=== PATIENT | male | born 1985 | race Caucasian/White ===

== ENCOUNTER 2018-12-09 16:04 | Emergency (ER) | payer OTHER ==
[~2018-12-09] VITALS: Ht 193 cm; Wt 132.9 kg
[~2018-12-09 16:04] MED LIST: BACTRIM DS TAB1 EACH PO; NOHOMEMEDICATIONS; NORCO 5-325 TA1 EACH PO; PREDNISONE 20 M20 M1 PO; VENTOLIN HFA 1818 GM INH; ZPAK PO
[2018-12-09] MEDS ORDERED: BLOOD PRESSURE MED (16:15)
[2018-12-09 17:26] LABS: ABSOLUTE BASOPHILS 0.1 thou/uL (0.0-0.2); ABSOLUTE EOSINOPHILS 0.1 thou/uL (0.0-0.7); ABSOLUTE MONOCYTES 0.6 thou/uL (0.0-1.2); ABSOLUTE NEUTROPHILS 6.8 thou/uL (1.6-8.1); BASOPHILS 0.7 %; EOSINOPHILS 0.7 %; HEMATOCRIT 42.5 % (42.0-52.0); MCH 34.8 pg (26.0-34.0); MCHC 35.4 g/dL (28.0-37.0); MCV 98.4 fL (80.0-100.0); MONOCYTES 6.4 %; MPV 7.2 fl. (7.2-11.1); NUCLEATED RBCS 0 /100WBC; PLATELET COUNT* 221 thou/uL (150-400); POLYS 71.2 %; RBC 4.32 mil/uL (4.50-6.00); WBC 9.5 thou/uL (4.0-11.0)
[2018-12-09 17:36] LABS: CALCIUM 9.2 mg/dL (8.5-10.1); POTASSIUM 3.6 mmol/L (3.5-5.1)
[2018-12-09 17:41] LABS: ALBUMIN 3.7 g/dL (3.4-5.0); TOTAL BILIRUBIN 0.7 mg/dL (<0.1-1.0); TOTAL PROTEIN 7.3 g/dL (6.4-8.2)
[2018-12-09 20:21] LABS: URINE BILIRUBIN NEGATIVE (Negative); URINE BLOOD NEGATIVE (Negative); URINE CLARITY CLEAR; URINE COLOR YELLOW; URINE GLUCOSE-RANDOM NEGATIVE (Negative); URINE KETONES NEGATIVE (Negative); URINE LEUKOCYTES-REFLEX NEGATIVE (Negative); URINE NITRITE-REFLEX NEGATIVE (Negative); URINE PROTEIN TRACE (Negative); URINE SPECIFIC GRAVITY >= 1.030 (1.005-1.030); URINE UROBILINOGEN 0.2 E.U./dl (0.2-1.0)
[2018-12-09] MEDS ORDERED: ONDANSETRON HCL4 M2 PO (20:26)
[2018-12-09] MEDS ORDERED: VENTOLIN HFA 1818 GM INH (20:34)
[2018-12-09 20:41] VITALS: BP 151/91
== END 2018-12-09 20:42 | disposition home or self-care (01) ==
LOC: M.ERS 16:04
PROVIDERS: Nurse Practitioner Family
DX: E86.0 Dehydration (principal); I10 Essential (primary) hypertension; J45.909 Unspecified asthma, uncomplicated; F17.210 Nicotine dependence, cigarettes, uncomplicated

== ENCOUNTER 2018-12-30 14:41 | Emergency (ER) | payer OTHER ==
[~2018-12-30] VITALS: Ht 193 cm; Wt 132.9 kg
[~2018-12-30 14:41] MED LIST changes: +BLOOD PRESSURE MED; +ONDANSETRON HCL4 M2 PO
[2018-12-30] MEDS ORDERED: NAPROSYN500 MG PO (16:02)
[2018-12-30 16:15] VITALS: BP 150/91
== END 2018-12-30 16:16 | disposition home or self-care (01) ==
LOC: M.ERS 14:41
DX: S60.221A Contusion of right hand, initial encounter (principal); J45.909 Unspecified asthma, uncomplicated; I10 Essential (primary) hypertension; F17.210 Nicotine dependence, cigarettes, uncomplicated; W22.8XXA Striking against or struck by other objects, initial encounter; Y93.89 Activity, other specified; Y92.89 Other specified places as the place of occurrence of the external cause; Y99.8 Other external cause status